=== PATIENT | female | born 1990 | race American Indian/Alaskan Native ===

== ENCOUNTER 2018-10-01 16:08 | Emergency (ER) | payer OTHER ==
[2018-10-01] MEDS ORDERED: PROVENTIL IH ONE ×4 (16:34→19:04)
[2018-10-01] MEDS ORDERED: ATROVENT IH ONE ×2 (16:34→16:35)
[2018-10-01] MEDS ORDERED: SOLU-Medrol IV ONE (16:35)
[2018-10-01] MEDS ORDERED: MAGNESIUM SULFATE 2GM/50ML 2 GM/50 ML BAG IV ONE (16:35)
[2018-10-01] MEDS ORDERED: CATAPRES PO ONE (16:47)
--- NOTE | 2018-10-01 16:50 | Emergency Department Report ---
<MARICHUY SENIOR III - Last Filed: 10/01/18 21:15> ED Shortness of Breath HPI - General Chief Complaint: Dyspnea/Respdistress Stated Complaint: ASTHMA Time Seen by Provider: 10/01/18 16:28 - Related Data Previous Rx's Medication Instructions Recorded Last Taken Type ALBUTEROL NEB's [Proventil 0.083% 2.5 mg IH TID PRN #30 neb 10/01/18 Unknown Rx NEBS] Albuterol Sulfate [Ventolin HFA] 2 puff IH Q4H PRN #1 hfa.aer.ad 10/01/18 Unknown Rx Cetirizine HCl [Zyrtec] 10 mg PO DAILY PRN #30 tablet 10/01/18 Unknown Rx amLODIPine [Norvasc] 5 mg PO DAILY #30 tab 10/01/18 Unknown Rx predniSONE [Deltasone] 40 mg PO QDAY 5 Days tab 10/01/18 Unknown Rx Allergies Allergy/AdvReac Type Severity Reaction Status Date / Time No Known Allergies Allergy Verified 10/01/18 16:31 ED Past Medical Hx - Medications Home Medications: Home Medications Medication Instructions Recorded Confirmed Last Taken Type ALBUTEROL NEB's [Proventil 0.083% 2.5 mg IH TID PRN #30 neb 10/01/18 Unknown Rx NEBS] Albuterol Sulfate [Ventolin HFA] 2 puff IH Q4H PRN #1 hfa.aer.ad 10/01/18 Un known Rx Cetirizine HCl [Zyrtec] 10 mg PO DAILY PRN #30 tablet 10/01/18 Unknown Rx amLODIPine [Norvasc] 5 mg PO DAILY #30 tab 10/01/18 Unknown Rx predniSONE [Deltasone] 40 mg PO QDAY 5 Days tab 10/01/18 Unknown Rx ED Course - Reevaluation(s) Reevaluation #1: Discussed all results with patient. Patient is stable for discharge. BV panel negative. Patient will be discharged home. Patient will need to follow up with her primary care. Patient voiced understanding of discharge instructions. 10/01/18 21:11 ED Medical Decision Making - Lab Data Result diagrams: 10/01/18 17:04 10/01/18 17:04 ED Disposition Clinical Impression: Noncompliance with medication regimen Acute asthma exacerbation Qualifiers: Asthma severity: unspecified severity Asthma persistence: unspecified Qualified Code(s): J45.901 - Unspecified asthma with (acute) exacerbation HTN (hypertension) Qualifiers: Hypertension type: essential hypertension Qualified Code(s): I10 - Essential (primary) hypertension Disposition: TO HOME OR SELFCARE Is pt being admited?: No Does the pt Need Aspirin: No Condition: Stable Instructions: Asthma (ED), Hypertension (ED) Additional Instructions: Take the medication as prescribed. Follow up with your doctor or the clinic/doctor provided. Return if symptoms worsen as indicated by your discharge instructions Prescriptions: predniSONE [Deltasone] 40 mg PO QDAY 5 Days tab amLODIPine [Norvasc] 5 mg PO DAILY #30 tab ALBUTEROL NEB's [Proventil 0.083% NEBS] 2.5 mg IH TID PRN #30 neb PRN Reason: Wheezing Albuterol Sulfate [Ventolin HFA] 2 puff IH Q4H PRN #1 hfa.aer.ad PRN Reason: Shortness Of Breath Cetirizine HCl [Zyrtec] 10 mg PO DAILY PRN #30 tablet PRN Reason: Allergy Symptoms Referrals: [facility] [Provider Group] - 3-5 Days BEN ELLIOTT MD [Staff Physician] - 3-5 Days Time of Disposition: 21:10 <JIMMY KING - Last Filed: 10/03/18 05:04> ED Shortness of Breath HPI - General Source: patient Mode of arrival: Ambulatory Limitations: No Limitations - History of Present Illness Initial Comments: 27-year-old female the past medical history asthma hypertension presents to the hospital with complaints of shortness of breath progressively for several days progressively worsening today. Productive cough reported without fever. Denies previous history of intubations. History of hypertension but not currently on medications. Chest tightness reported. Symptoms worse with exertion. Pt recently moved here from [place] and does not have a pmd. Pt has a secondary complaint of malodorous vaginal discharge is is that she has bacterial vaginosis last sexually active one month ago. ED Review of Systems ROS: Stated complaint: ASTHMA Other details as noted in HPI Comment: All other systems reviewed and negative ED Past Medical Hx - Past Medical History Previous Medical History?: Yes Hx Hypertension: Yes Hx Asthma: Yes - Surgical History Past Surgical History?: Yes Additional Surgical History: appendectomy - Social History Smoking Status: Never Smoker Substance Use Type: None ED Physical Exam - General Limitations: No Limitations - Other Other exam information: General: Positive respiratory distress Head exam: Atraumatic, normocephalic Eyes exam: Normal appearance ENT: Moist mucous membrane, normal oropharynx Neck exam: Normal inspection, full range of motion, no meningismus nontender Respiratory exam: Tachypnea, accessory muscle use, breathless when speaking. Fair air movement with bilateral wheezing Cardiovascular: Tachycardia regular rhythm Abdomen: Soft, nondistended, and nontender, with normal bowel sounds, no lalita ound, or guarding Extremity: Full range of motion normal inspection no deformity, no calf tenderness or edema : No external lesions, malodorous fishy vaginal discharge, no CMT or adnexal tenderness Back: Normal Inspection, full range of motion, no tenderness Neurologic: Alert, oriented x3, cranial nerves intact, no motor or sensory deficit Psychiatric: normal affect, normal mood Skin: Warm, dry, intact ED Course Vital Signs 10/01/18 10/01/18 10/01/18 16:22 16:30 16:31 Temperature 98.5 F Pulse Rate 99 H 111 H 110 H Pulse Rate [ Anterior Bilateral Throughout] Respiratory 30 H 21 20 Rate Respiratory Rate [Anterior Bilateral Throughout] Blood Pressure 172/122 172/122 Blood Pressure [Left] O2 Sat by Pulse 94 96 94 Oximetry 10/01/18 10/01/18 10/01/18 16:46 16:50 16:52 Temperature Pulse Rate 93 H 100 H Pulse Rate [ 87 Anterior Bilateral Throughout] Respiratory 18 Rate Respiratory 22 Rate [Anterior Bilateral Throughout] Blood Pressure 176/120 182/113 Blood Pressure [Left] O2 Sat by Pulse 98 Oximetry 10/01/18 10/01/18 10/01/18 17:00 17:13 17:15 Temperature Pulse Rate 84 82 Pulse Rate [ 89 Anterior Bilateral Throughout] Respiratory 23 16 Rate Respiratory 24 Rate [Anterior Bilateral Throughout] Blood Pressure 182/113 Blood Pressure 157/105 [Left] O2 Sat by Pulse 100 96 Oximetry 10/01/18 10/01/18 10/01/18 17:30 17:45 18:00 Temperature Pulse Rate 102 H 99 H 102 H Pulse Rate [ Anterior Bilateral Throughout] Respiratory 11 L 17 7 L Rate Respiratory Rate [Anterior Bilateral Throughout] Blood Pressure 149/96 163/119 163/119 Blood Pressure [Left] O2 Sat by Pulse 100 99 98 Oximetry 10/01/18 10/01/18 10/01/18 18:15 18:30 18:45 Temperature Pulse Rate 103 H 103 H 99 H Pulse Rate [ Anterior Bilateral Throughout] Respiratory 15 12 13 Rate Respiratory Rate [Anterior Bilateral Throughout] Blood Pressure 145/87 145/87 139/92 Blood Pressure [Left] O2 Sat by Pulse 98 100 Oximetry 10/01/18 10/01/18 10/01/18 19:00 19:15 19:30 Temperature Pulse Rate 112 H 96 H 111 H Pulse Rate [ Anterior Bilateral Throughout] Respiratory 19 20 12 Rate Respiratory Rate [Anterior Bilateral Throughout] Blood Pressure 139/92 151/93 151/93 Blood Pressure [Left] O2 Sat by Pulse 100 98 99 Oximetry 10/01/18 10/01/18 10/01/18 19:45 20:00 20:15 Temperature 98 F Pulse Rate 109 H 117 H 110 H Pulse Rate [ Anterior Bilateral Throughout] Respiratory 22 15 99 H Rate Respiratory Rate [Anterior Bilateral Throughout] Blood Pressure 133/88 146/102 Blood Pressure 149/98 [Left] O2 Sat by Pulse 98 100 Oximetry - Reevaluation(s) Reevaluation #1: 10/01/18 18:45 after albuterol 10/atroven 1mg solumedrol and mag pt is breathing a lot better and able to speak in complete sentences ED Medical Decision Making - Lab Data Result diagrams: 10/01/18 17:04 10/01/18 17:04 Lab Results 10/01/18 10/01/18 10/01/18 Range/Units 17:04 17:04 17:04 WBC 5.9 (4.5-11.0) K/mm3 RBC 4.53 (3.65-5.03) M/mm3 Hgb 13.6 (10.1-14.3) gm/dl Hct 40.7 (30.3-42.9) % MCV 90 (79-97) fl MCH 30 (28-32) pg MCHC 34 (30-34) % RDW 13.4 (13.2-15.2) % Plt Count 267 (140-440) K/mm3 Lymph % (Auto) 29.5 (13.4-35.0) % [place] % (Auto) 7.8 H (0.0-7.3) % Eos % (Auto) 2.3 (0.0-4.3) % Baso % (Auto) 0.5 (0.0-1.8) % Lymph # 1.7 (1.2-5.4) K/mm3 [place] # 0.5 (0.0-0.8) K/mm3 Eos # 0.1 (0.0-0.4) K/mm3 Baso # 0.0 (0.0-0.1) K/mm3 Seg Neutrophils % 59.9 (40.0-70.0) % Seg Neutrophils # 3.5 (1.8-7.7) K/mm3 Sodium 140 (137-145) mmol/L Potassium 3.8 (3.6-5.0) mmol/L Chloride 102.3 (98-107) mmol/L Carbon Dioxide 25 (22-30) mmol/L Anion Gap 17 mmol/L BUN 8 (7-17) mg/dL Creatinine 0.5 L (0.7-1.2) mg/dL Estimated GFR > 60 ml/min BUN/Creatinine Ratio 16 % Glucose 92 (65-100) mg/dL Calcium 9.0 (8.4-10.2) mg/dL HCG, Qual Negative (Negative) wet prep gc/chl pending - EKG Data -: EKG Interpreted by Ne EKG shows normal: sinus rhythm, axis (qrs 35), QRS complexes (qrsd 89), ST-T waves (no stemi) Rate: normal (98) - Radiology Data Radiology results: report reviewed PROCEDURE: XR CHEST 1V AP TECHNIQUE: Frontal portable view of the chest HISTORY: sob, wheeze COMPARISONS: None FINDINGS: There is mild elevation of the left hemidiaphragm. There is no evidence of focal infiltrate, pneumothorax or pleural fluid collection. The cardiomediastinal silhouette is normal in appearance. The bony structures are unremarkable. IMPRESSION: 1. No evidence of an acute pulmonary process. - Medical Decision Making pt improving plan to d/c with meds for asthma and htn wet prep pending Dr Griffiths to follow gc/chl pending may admit if sx worsen again - Differential Diagnosis asthma, pneumonia, bronchitis, CHF, hypertensive emergency Critical Care Time: No Critical care attestation.: If time is entered above; I have spent that time in minutes in the direct care of this critically ill patient, excluding procedure time. ED Disposition Is pt being admited?: No Does the pt Need Aspirin: No
[2018-10-01 17:17] LABS: Basophils % (Auto) 0.5 % (0.0-1.8); Eosinophils # (Auto) 0.1 K/mm3 (0.0-0.4); Eosinophils % (Auto) 2.3 % (0.0-4.3); Hematocrit 40.7 % (30.3-42.9); Hemoglobin 13.6 gm/dl (10.1-14.3); Lymphocytes # (Auto) 1.7 K/mm3 (1.2-5.4); Lymphocytes % (Auto) 29.5 % (13.4-35.0); Mean Corpuscular HGB Conc 34 % (30-34); Mean Corpuscular Volume 90 fl (79-97); Monocytes # (Auto) 0.5 K/mm3 (0.0-0.8); Monocytes % (Auto) 7.8 % (0.0-7.3); Platelet Count 267 K/mm3 (140-440); Red Blood Count 4.53 M/mm3 (3.65-5.03); Red Cell Distribution Width 13.4 % (13.2-15.2)
[2018-10-01 17:29] LABS: BUN/Creatinine Ratio 16; Blood Urea Nitrogen 8 mg/dL (7-17); Hemolysis Index 3
--- NOTE | 2018-10-01 19:09 | XRay Report ---
PROCEDURE: XR CHEST 1V AP TECHNIQUE: Frontal portable view of the chest HISTORY: sob, wheeze COMPARISONS: None FINDINGS: There is mild elevation of the left hemidiaphragm. There is no evidence of focal infiltrate, pneumothorax or pleural fluid collection. The cardiomediastinal silhouette is normal in appearance. The bony structures are unremarkable. IMPRESSION: 1. No evidence of an acute pulmonary process. This document is electronically signed by Nae Rod MD., October 01 2018 07:07:04 PM ET
[2018-10-01 20:18] VITALS: BP 149/98
== END 2018-10-01 21:39 | disposition home or self-care (01) ==
LOC: ED 16:08
DX: J45.901 Unspecified asthma with (acute) exacerbation (principal); I10 Essential (primary) hypertension; Z91.14 Patient's other noncompliance with medication regimen
CPT/HCPCS: 36415; 71045; 80048; 84703; 85025; 87210; 87591; 93005; 93010; 94644; 96365; 96375; 99285; J2930; J3475